=== PATIENT | male | born 1965 | race Two or more races ===

== ENCOUNTER 2019-04-17 17:03 | Emergency (ER) | payer MEDICAID, OTHER ==
[~2019-04-17] VITALS: Ht 165.1 cm; Wt 59.0 kg
[~2019-04-17 17:03] MED LIST: AUGMENTIN 875-1 EAC1 ORAL; IBUPROFEN600 MG ORAL; NKM; NORCO 5-325 TA1 EACH ORAL
[2019-04-17] MEDS ORDERED: LIPITOR80 MG ORAL (17:15)
[2019-04-17 17:26] VITALS: BP 130/74
--- NOTE | 2019-04-17 18:18 | Emergency Room Report ---
History of Present Illness General Chief Complaint: Hypertension Source: Patient Present Illness HPI 53 YO male presents to the emergency department for blood pressure check. As well as sore throat. Patient states that yesterday he had an elevated blood pressure in the 140s systolic. Patient denies headache, dizziness, weakness or paresthesias. Patient also states that he has sore throat status post inhaling chemicals while cleaning. Patient denies cough he denies shortness of breath. Denies chest pain or palpitations. No complaints at this time no aggravating or relieving factors. denies visual changes. Allergies: Coded Allergies: No Known Allergies (Unverified , 01/23/14) Patient History Past Medical History: see triage record Past Surgical History: none Pertinent Family History: none Reviewed Nursing Documentation: PMH: Agreed; PSxH: Agreed Nursing Documentation-PMH Past Medical History: No History, Except For Review of Systems All Other Systems: negative except mentioned in HPI Physical Exam Vital Signs Date Time Temp Pulse Resp B/P (MAP) Pulse Ox O2 Delivery O2 Flow Rate FiO2 04/17/19 17:12 98.2 69 20 130/74 (92) 95 Room Air Sp02 EP Interpretation: reviewed, normal General Appearance: no apparent distress, alert, GCS 15, non-toxic Head: normocephalic, atraumatic Eyes: bilateral eye normal inspection, bilateral eye PERRL ENT: hearing grossly normal, no angioedema, normal voice, pharyngeal erythema, other - no stridor Neck: full range of motion Respiratory: chest non-tender, lungs clear, normal breath sounds, no respiratory distress, no accessory muscle use, no wheezing, speaking full sentences Cardiovascular #1: regular rate, rhythm, no edema Musculoskeletal: back normal, gait/station normal, normal range of motion, non- tender Neurologic: alert, oriented x3, responsive, motor strength/tone normal, sensory intact, normal gait, speech normal, grossly normal Psychiatric: judgement/insight normal Skin: normal color, no rash, warm/dry, well hydrated Lymphatic: no adenopathy Medical Decision Making PA Attestation Dr. Davis Is my supervising Physician whom patient management has been discussed with. Diagnostic Impression: Primary Impression: Elevated blood pressure reading Additional Impression: Sore throat ER Course 53 YO male presents to the emergency department for blood pressure check. As well as sore throat. Patient states that yesterday he had an elevated blood pressure in the 140s systolic. Patient denies headache, dizziness, weakness or paresthesias. Patient also states that he has sore throat status post inhaling chemicals while cleaning. Patient denies cough he denies shortness of breath. Denies chest pain or palpitations. No complaints at this time no aggravating or relieving factors. denies visual changes. Ddx considered but are not limited to hypertensive urgency/emergency, aortic dissection, CVA,ICH, pharyngitis, chemical burn just to name a few. Vital signs: are WNL, pt. is afebrile H&PE are most consistent with normal BP reading without evidence of endstage organ symptoms/ acute damage. No focal neurological deficits.Pt. is NAD , non- Toxic in appearance. no evidence of airway compromise. ORDERS: none required at this time, the diagnosis is clinical ED INTERVENTIONS: None required at this time. -I do not identify an emergent condition at this time. With current presentation , pt. is stable for close outpatient follow up and conservative treatment. D/ w pt. to return promptly to ED with worsening or new symptoms.- Pt. verbalizes' understanding and agreement with proposed treatment plan. DISCHARGE: At this time pt. is stable for d/c to home. Will provide printed patient care instructions, and any necessary prescriptions. Care plan and follow up instructions have been discussed with the patient prior to discharge. Last Vital Signs Date Time Temp Pulse Resp B/P (MAP) Pulse Ox O2 Delivery O2 Flow Rate FiO2 04/17/19 17:26 98.2 69 20 130/74 95 Room Air Status: improved Disposition: HOME, SELF-CARE Condition: Stable Scripts Lidocaine HCl 2% Viscous (Lidocaine HCl 2% Viscous) 100 Ml Solution 10 ML ORAL QID, #120 ML Prov: Siobhan Anderson 04/17/19 Referrals: NOT CHOSEN IPA/,REFERRING (PCP) Patient Instructions: How to Take Your Blood Pressure, [id number], Medical Screening Exam Additional Instructions: Take medications as directed. Follow up with a Primary Care Provider in 3-5 days, even if your symptoms have resolved. --Please review list of primary care clinics, if you do not already have a primary care provider Return sooner to ED if new symptoms occur, or current symptoms become worse. - Please note that this Emergency Department Report was dictated using Dragon transformation coach technology software, occasionally this can lead to erroneous entry secondary to interpretation by the dictation equipment. Siobhan Anderson Apr 17, 2019 18:18
[2019-04-17] MEDS ORDERED: LIDOCAINE VISC100 ML ORAL (18:28)
[2019-04-17 18:34] VITALS: BP 127/78
== END 2019-04-17 18:36 | disposition home or self-care (01) ==
LOC: EMR 17:48
DX: R07.0 Pain in throat (principal); R03.0 Elevated blood-pressure reading, without diagnosis of hypertension
CPT/HCPCS: 99282

== ENCOUNTER 2019-11-14 12:00 | Emergency (ER) | payer SELFPAY ==
[~2019-11-14] VITALS: Ht 165.1 cm; Wt 59.0 kg
[2019-11-14 11:55] VITALS: BP 149/92
[~2019-11-14 12:00] MED LIST changes: +LIDOCAINE VISC100 ML ORAL; +LIPITOR80 MG ORAL
--- NOTE | 2019-11-14 12:20 | NUR ---
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 Reports no injury. Reports no CP, SOB or dizziness. Regular, unlabored breathing noted. Patient sitting in chair without facial grimacing or guarding.
--- NOTE | 2019-11-14 12:21 | Emergency Room Report ---
History of Present Illness General Chief Complaint: Neck Pain Source: Patient Present Illness HPI 54-year-old male with history of hyperlipidemia currently taking simvastatin nightly here complaining of 1 week of left-sided neck pain radiating to left arm. Patient was brought in by paramedics as pain started getting worse today at work. Patient denies any strenuous physical activity or lifting heavy objects. Rating her pain 7 out of 10 with radiation to left arm worsened with lateral motions. Denies tingling and numbness. Denies fall or injury. Has full range of motion of his neck. Denies chest pain, chest pain radiation, palpitation, headache and dizziness. Reports that he has not taken any medication for symptom relief as he does not like to take pain medication. Reports that he has not been to his primary care physician in a few months and has been getting his refills of simvastatin from the pharmacy however is unable to get his simvastatin as he needs to go see his primary doctor within the next couple weeks. Denies fever and chills, URI symptoms, no unilateral or generalized weakness noted. No motor or sensory deficits noted. Allergies: Coded Allergies: No Known Allergies (Unverified , 01/23/14) Patient History Past Medical History: see triage record Past Surgical History: unable to obtain Pertinent Family History: none Immunizations: UTD Reviewed Nursing Documentation: PMH: Agreed; PSxH: Agreed Nursing Documentation-PMH Past Medical History: No History, Except For Review of Systems All Other Systems: negative except mentioned in HPI Physical Exam Vital Signs Date Time Temp Pulse Resp B/P (MAP) Pulse Ox O2 Delivery O2 Flow Rate FiO2 11/14/19 11:55 98.2 77 17 149/92 (111) 99 Room Air Sp02 EP Interpretation: reviewed, normal General Appearance: no apparent distress, alert, GCS 15, non-toxic Head: normocephalic, atraumatic Eyes: bilateral eye normal inspection, bilateral eye PERRL ENT: hearing grossly normal, normal pharynx, no angioedema, normal voice Neck: full range of motion, supple, thyroid normal, no meningismus, no bony tend, no carotid bruits, supple/symm/no masses Respiratory: chest non-tender, lungs clear, normal breath sounds, no rhonchi, no retraction, no wheezing, speaking full sentences Cardiovascular #1: no edema, no JVD, no murmur Cardiovascular #2: 2+ carotid (R), 2+ carotid (L) Gastrointestinal: normal bowel sounds, non tender, soft, non-distended, no guarding, no rebound Rectal: deferred Musculoskeletal: back normal, normal range of motion, no calf tenderness, gait/ station normal, non-tender Neurologic: alert, motor strength/tone normal, oriented x3, sensory intact, responsive, speech normal Psychiatric: judgement/insight normal, memory normal, mood/affect normal, no suicidal/homicidal ideation Skin: no rash Lymphatic: no adenopathy Medical Decision Making PA Attestation All my diagnosis and treatment plans were reviewed ad discussed with my supervising physician Dr. Khoury Diagnostic Impression: Primary Impression: Cervical strain Additional Impression: Medication refill ER Course 54-year-old male with history of hyperlipidemia currently taking simvastatin nightly here complaining of 1 week of left-sided neck pain radiating to left arm. Patient was brought in by paramedics as pain started getting worse today at work. Patient denies any strenuous physical activity or lifting heavy objects. Rating her pain 7 out of 10 with radiation to left arm worsened with lateral motions. Denies tingling and numbness. Denies fall or injury. Has full range of motion of his neck. Denies chest pain, chest pain radiation, palpitation, headache and dizziness. Reports that he has not taken any medication for symptom relief as he does not like to take pain medication. Reports that he has not been to his primary care physician in a few months and has been getting his refills of simvastatin from the pharmacy however is unable to get his simvastatin as he needs to go see his primary doctor within the next couple weeks. Denies fever and chills, URI symptoms, no unilateral or generalized weakness noted. No motor or sensory deficits noted. Ddx considered but are not limited to: cervical sprain, strain, fracture, radiculopathy Vital signs: are WNL, pt. is afebrile H&PE are most consistent with: cervical strain ORDERS: motrin, robaxin, lidocaine patch , simvastatin ED INTERVENTIONS: None required at this time. DISCHARGE: At this time pt. is stable for d/c to home. Will provide printed patient care instructions, and any necessary prescriptions. Care plan and follow up instructions have been discussed with the patient prior to discharge. Patient to follow with her primary care provider, at this time no imaging is needed patient did not fall or injure himself. Also follow-up with primary care provider in regards to more refills of simvastatin. If worsening symptoms return to the emergency Last Vital Signs Date Time Temp Pulse Resp B/P (MAP) Pulse Ox O2 Delivery O2 Flow Rate FiO2 11/14/19 11:55 98.2 77 17 149/92 (111) 99 Room Air Disposition: HOME, SELF-CARE Condition: Stable Scripts Simvastatin (ZOCOR) 20 Mg Tablet 20 MG ORAL BEDTIME for 14 Days, #14 TAB Prov: Bala Flores 11/14/19 Lidocaine Patch* (Lidoderm Patch*) 1 Each Adh..patch 1 PATCH TOPIC DAILY, #7 PATCH 0 Refills Patch(es) may remain in place for up to 12 hours in any 24-hour period. Prov: Bala Flores 11/14/19 Methocarbamol* (ROBAXIN-500*) 500 Mg Tablet 500 MG ORAL TID PRN for For Pain, #15 TAB 0 Refills Prov: Bala Flores 11/14/19 Ibuprofen* (MOTRIN*) 600 Mg Tablet 600 MG ORAL Q8H PRN for For Pain, #30 TAB 0 Refills Prov: Bala Flores 11/14/19 Patient Instructions: Cervical Strain and Sprain With Rehab-SportsMed Additional Instructions: Take medication as directed, follow-up with your primary care provider, if worsening symptoms return to emergency room. Avoid strenuous physical activity Bala Flores Nov 14, 2019 12:21
[2019-11-14] MEDS ORDERED: LIDODERM700 M1 TOPIC (12:22)
[2019-11-14] MEDS ORDERED: ROBAXIN-500MG ORAL (12:22)
[2019-11-14] MEDS ORDERED: IBUPROFEN600 MG ORAL (12:22)
[2019-11-14] MEDS ORDERED: SIMVASTATIN20 MG ORAL (12:23)
--- NOTE | 2019-11-14 12:30 | NUR ---
Patient was evaluated, treated and discharged with aftercare instructions by Nicki Mckenna
== END 2019-11-14 12:30 | disposition home or self-care (01) ==
LOC: EDBD 12:00 → EMR 12:30
DX: S16.1XXA Strain of muscle, fascia and tendon at neck level, initial encounter (principal); X58.XXXA Exposure to other specified factors, initial encounter; Y93.9 Activity, unspecified; Y92.9 Unspecified place or not applicable; Z76.0 Encounter for issue of repeat prescription
CPT/HCPCS: 99282

== ENCOUNTER 2020-05-30 04:43 | Emergency (ER) | payer SELFPAY ==
[~2020-05-30] VITALS: Ht 165.1 cm; Wt 59.0 kg
[~2020-05-30 04:43] MED LIST changes: +LIDODERM700 M1 TOPIC; +ROBAXIN-500MG ORAL; +SIMVASTATIN20 MG ORAL
--- NOTE | 2020-05-30 04:50 | NUR ---
ED Nurse Note: ambulated to ed c/o left CP 5/10 radiating to left neck while sleeping. reports dry mouth. ambulates with steady gait. changed into gown; attached to monitor; nsr. All safety measures met.
[2020-05-30 05:00] VITALS: BP 150/84
[2020-05-30] MEDS ORDERED: Aspirin Baby 81mg ORAL ONE (05:00)
--- NOTE | 2020-05-30 05:00 | NUR ---
ED Nurse Note: IV access established. blood and urine collected; sent down to lab.
--- NOTE | 2020-05-30 05:03 | Emergency Room Report ---
History of Present Illness General Chief Complaint: Chest Pain Source: Patient Present Illness HPI Is a 54-year-old male with a history of hyperlipidemia. He presents with complaint of chest pain. This been on intermittent problem for the last 6 months. He woke up today with sharp pain in his left chest area. There is no radiation. No nausea no vomiting. Pain is pretty much gone now. He get nervous and anxious when this happened. He said to get dry mouth with this. No fever chills. No exertional component. No diaphoresis. He said he is under a lot of stress because of the pandemic and lack of work. 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 Patient History Past Medical History: see triage record, old chart reviewed Past Surgical History: none Pertinent Family History: none Social History: Denies: smoking Immunizations: other Reviewed Nursing Documentation: PMH: Agreed; PSxH: Agreed Review of Systems Eye: Denies: eye pain, blurred vision ENT: Denies: ear pain, nose congestion, throat swelling Respiratory: Denies: cough, shortness of breath Cardiovascular: Reports: chest pain; Denies: palpitations Gastrointestinal: Denies: abdominal pain, diarrhea, nausea, vomiting Musculoskeletal: Denies: back pain, joint pain Skin: Denies: rash Neurological: Denies: headache, numbness Endocrine: Denies: increased thirst, increased urine Hematologic/Lymphatic: Denies: easy bruising All Other Systems: negative except mentioned in HPI Physical Exam Vital Signs Date Time Temp Pulse Resp B/P (MAP) Pulse Ox O2 Delivery O2 Flow Rate FiO2 05/30/20 04:45 97.9 83 19 150/84 (106) 95 Room Air Vitals with high blood pressure Sp02 EP Interpretation: reviewed, normal General Appearance: well appearing, no apparent distress, alert Head: normocephalic, atraumatic Eyes: bilateral eye PERRL, bilateral eye EOMI ENT: hearing grossly normal, normal pharynx Neck: full range of motion, supple, no meningismus Respiratory: chest non-tender, lungs clear, normal breath sounds Cardiovascular #1: regular rate, rhythm, no murmur Gastrointestinal: normal bowel sounds, non tender, no mass, no organomegaly, no bruit, non-distended Musculoskeletal: back normal, normal range of motion, gait/station normal Psychiatric: anxious Medical Decision Making Diagnostic Impression: Primary Impression: Chest pain Qualified Codes: R07.9 - Chest pain, unspecified ER Course Patient presents with chest pain. Atypical in nature. Most likely anxiety related. If labs and troponin are negative, can be discharged home. EKG Diagnostic Results Rate: normal Rhythm: NSR ST Segments: no acute changes ASA given to the pt in ED: Yes Rhythm Strip Diag. Results EP Interpretation: yes Rate: 70 Rhythm: NSR, no PVC's, no ectopy Chest X-Ray Diagnostic Results Chest X-Ray Diagnostic Results : Chest X-Ray Ordered: Yes # of Views/Limited/Complete: 1 View Indication: Chest Pain EP Interpretation: Yes Interpretation: no consolidation, no effusion, no pneumothorax, no acute cardiopulmonary disease Impression: No acute disease Electronically Signed by: Navdeep Chauhan MD Last Vital Signs Date Time Temp Pulse Resp B/P (MAP) Pulse Ox O2 Delivery O2 Flow Rate FiO2 05/30/20 04:45 97.9 83 19 150/84 (106) 95 Room Air Status: improved Disposition: HOME, SELF-CARE Condition: Stable Patient Instructions: Nonspecific Chest Pain Additional Instructions: Follow-up with your doctor in 7 days. If continue with chest pain you may need referral to see bow repairer custom for stress test. Return if worse. Navdeep Chauhan MD May 30, 2020 05:03
[2020-05-30 06:08] LABS: BASOPHILS % (AUTO) 1.1 % (0.0-2.0); HEMATOCRIT 46.7 % (42.0-52.0); HEMOGLOBIN 15.5 G/DL (14.2-18.0); MEAN CORPUSCULAR VOLUME 89 FL (80-99); MONOCYTES % (AUTO) 4.7 % (1.0-10.0); NEUTROPHILS % (AUTO) 52.2 % (45.0-75.0); PLATELET COUNT 224 K/UL (150-450); RED BLOOD COUNT 5.25 M/UL (4.70-6.10); RED CELL DISTRIBUTION WIDTH 11.3 % (11.6-14.8); WHITE BLOOD COUNT 8.2 K/UL (4.8-10.8)
[2020-05-30 06:13] LABS: ANION GAP 7 mmol/L (5-15); BLOOD UREA NITROGEN 18 mg/dL (7-18); CALCIUM 8.6 MG/DL (8.5-10.1); CARBON DIOXIDE 29 MMOL/L (21-32); CHLORIDE 103 MMOL/L (98-107); POTASSIUM 3.4 MMOL/L (3.5-5.1); SODIUM 139 MMOL/L (136-145)
[2020-05-30 06:18] LABS: ALANINE AMINOTRANSFERASE 30 U/L (12-78); ALBUMIN 4.1 G/DL (3.4-5.0); ALBUMIN/GLOBULIN RATIO 1.3 (1.0-2.7); ALKALINE PHOSPHATASE 63 U/L (46-116); ASPARTATE AMINO TRANSFERASE 17 U/L (15-37); BILIRUBIN,TOTAL 0.8 MG/DL (0.2-1.0)
--- NOTE | 2020-05-30 06:18 | Diagnostic Imaging Report ---
EXAM: XR Chest, 1 View CLINICAL HISTORY: Chest pain TECHNIQUE: Frontal view of the chest. COMPARISON: No relevant prior studies available. FINDINGS: Lungs: Lungs are well-inflated. No airspace consolidation. No pulmonary edema. Pleural space: Unremarkable. No pneumothorax. No significant pleural effusions. Heart: Unremarkable. No cardiomegaly. Mediastinum: Unremarkable. No mediastinal widening or shift. Bones/joints: Unremarkable. No acute osseous abnormality. IMPRESSION: No evidence of active cardiopulmonary abnormality.
[2020-05-30 06:26] LABS: APPEARANCE,URINE CLEAR; BILIRUBIN, URINE NEGATIVE (NEGATIVE); GLUCOSE, URINE (UA) NEGATIVE (NEGATIVE); KETONES,URINE NEGATIVE (NEGATIVE); LEUKOCYTE ESTERASE ,URINE NEGATIVE (NEGATIVE); NITRITE,URINE NEGATIVE (NEGATIVE); PH,URINE 5 (4.5-8.0); PROTEIN,URINE NEGATIVE (NEGATIVE); UROBILINOGEN,URINE NORMAL MG/DL (0.0-1.0)
[2020-05-30 06:27] LABS: COLOR,URINE YELLOW
[2020-05-30 06:36] VITALS: BP 131/64
--- NOTE | 2020-05-30 06:44 | NUR ---
ER DISCHARGE NOTE: Patient is cleared to be discharged per ERMD, pt is aox4, on room air, with stable vital signs. pt was given dc and prescription instructions, pt was able to verbalize understanding, pt id band and iv site removed without complications. pt is able to ambulate with steady gait. pt took all belongings.
[2020-05-30 06:45] VITALS: BP 131/64
== END 2020-05-30 06:46 | disposition home or self-care (01) ==
LOC: EMR 05:20
DX: R07.9 Chest pain, unspecified (principal); E78.5 Hyperlipidemia, unspecified
CPT/HCPCS: 36415; 71045; 80053; 81001; 84484; 85025; 93005; 99284